=== PATIENT | male | born 1960 | race African-American/Black ===

== ENCOUNTER 2019-11-18 14:19 | Inpatient (IN) | payer OTHER ==
[2019-11-18 16:26] VITALS: BMI 19.8
--- NOTE | 2019-11-18 17:43 | HP ---
COWS - Scale Resting Pulse: 2= TN 101-120 Sweatin=Flushed/Facial Moisture Restless Observation: 0= Sits Still Pupil Size: 0= Normal to Room Light (Pupils pinpoint) Bone or Joint Aches: 0= None (Pain is unrelated to withdrawal) Runny Nose/ Eye Tearin= None GI Upset > 30mins: 0= None Tremor Observation: 2= Slight Tremor Visible Yawning Observation: 0= None Anxiety or Irritability: 2=Irritable/Anxious Goose Flesh Skin: 0=Smooth Skin COWS Score: 8 CIWA Score Nausea/Vomitin-No Nausea/No Vomiting Muscle Tremors: 3 Anxiety: 3 Agitation: 0-Normal Activity Paroxysmal Sweats: 3 (Increased facial moisture) Orientation: 0-Oriented Tacttile Disturbances: 0-None Auditory Disturbances: 0-None Visual Disturbances: 0-None Headache: 2-Mild CIWA-Ar Total Score: 11 - Admission Criteria OASAS Guidelines: Admission for Medically Managed Detox: Requires at least one of the followin. CIWA greater than 12 2. Seizures within the past 24 hours 3. Delirium tremens within the past 24 hours 4. Hallucinations within the past 24 hours 5. Acute intervention needed for co occurring medical disorder 6. Acute intervention needed for co occurring psychiatric disorder 7. Severe withdrawal that cannot be handled at a lower level of care (continued vomiting, continued diarrhea, abnormal vital signs) requiring intravenous medication and/or fluids 8. Patient presents the following: Acute intervention needed for co-occurring med or psych disorder (EL: 0.044; HIV+) Admission Criteria Met: Admission criteria met Admitting History and Physical - Smoking History Smoking history: Current every day smoker Have you smoked in the past 12 months: No Aproximately how many cigarettes per day: 20 - Alcohol/Substance Use Hx Alcohol Use: Yes Admission ROS BHS - HPI Chief Complaint: "I'm tired of using drugs. I need to gey sober for me and to see my family" Allergies/Adverse Reactions: Allergies Allergy/AdvReac Type Severity Reaction Status Date / Time No Known Allergies Allergy Verified 11/18/19 16:24 History of Present Illness: 59 yo presents w/ opiate withdrawal symptoms seeking heroin and alcohol detox. States biggest problem is alcohol and cocaine. EL: 0.004 UTox: + TISHA/MOR=MOP/FYL=FEN Denies seizures, blackouts, or overdoses. PATIENT W/ SOB W/ MINIMAL EXERTION AND WHEN SPEAKS. QUIET, NON-PRODUCTIVE COUGH. LUNGS CTA. PULSE OX = 93 % ON ROOM AIR. NOW UP TO 95 %. R= 22 DENIES CP. EK11/18/2019 = NSR/NORMAL EKG Known to staff member and states respiratory pattern is his normal baseline. Patient refuses to go to ED. Will order CXR. Alcohol use began at age 19. Currently drinks 1 qt beer/day. States used to drink more. Last drink was 2 hrs ago. Heroin use began at age 20. Currently 1 bag/day x 2 months. Sniff. Last used 3 hrs ago. States has cut down. Denies having a Narcan kit. Encouraged to speak w/ provider to obtain. Cocaine use began at age 21. Currently smokes $200/day. Last used 3 hrs ago. Nicotine use began at age 19. Smokes 1 PPD. PMHx: HIV+ on meds - not always compliant. (States last took on 11/17/2019); HTN; hx (L) hip (uses a walker or electric wheelchair). neuropathy (informed that Gabapentin would be decreased to 100 mg TID and verbalizes an understanding) Hx: Pneumothorax 2 yrs ago. States always puffs when talks and walks. MHHx: Denies depression. Denies thoughts of harming self or others SHx: Domiciled. Unemployed. Denies legal issues. Patient Name: London Moura Date: 1960 Address: [address] [place] [id number] Sex: Male Rx Written Rx Dispensed Drug Quantity Days Supply Prescriber Name 08/29/2019 08/30/2019 morphine sulfate ir 15 mg tab 60 30 Mariposa De Leon [facility] 08/29/2019 08/29/2019 morphine sulf er 15 mg tablet 30 30 Mariposa De Leon [facility] Patient Name: Jackson Moura Date: 1960 Address: [address] [place] [id number] Sex: Male Rx Written Rx Dispensed Drug Quantity Days Supply Prescriber Name 08/17/2019 08/17/2019 morphine sulf er 15 mg tablet 30 15 Boo Chavarria MD 08/17/2019 08/17/2019 buprenorphine-naloxone 8-2 mg sl film 30 15 Boo Chavarria MD Patient Name: London Moura Date: 1960 Address: [address] [place] [address] Sex: Male Rx Written Rx Dispensed Drug Quantity Days Supply Prescriber Name 07/31/2019 08/02/2019 buprenorphine-naloxone 8-2 mg sl film 15 8 Santiago Gardiner MD Exam Limitations: No Limitations - Ebola screening Have you traveled outside of the country in the last 21 days: No Have you had contact with anyone from an Ebola affected area: No Have you been sick,other than usual withdrawal symptoms: No Do you have a fever: No - Review of Systems Constitutional: Changes in sleep (Difficulty), Unintentional Wgt. Loss EENT: reports: Blurred Vision, Other (Eyes sensitive to light. Wears dark glasses) Respiratory: reports: Cough (Dry x months), SOB with Exertion Cardiac: reports: No Symptoms Reported GI: reports: No Symptoms Reported : reports: Frequency (5-6 x/nigt) Musculoskeletal: reports: Joint Pain ((L) and (R) hip. (L) > (R). Sharp pain. "5 ". Pain increases w/ walking/sitting) Integumentary: reports: No Symptoms Reported Neuro: reports: Headache (Frontal dull headache "5"), Tingling (Toes and feet), Unsteady Gait (Uses a wheelchair at home or walker) Endocrine: reports: No Symptoms Reported, Increased Thirst Hematology: reports: Anemia (HIV + on meds) Psychiatric: reports: Judgement Intact, Orientated x3, Agitated, Anxious Patient History - Patient Medical History Hx Anemia: No Hx Asthma: No Hx Chronic Obstructive Pulmonary Disease (COPD): No Hx Cancer: No Hx Cardiac Disorders: No Hx Congestive Heart Failure: No Hx Hypertension: Yes Hx Hypercholesterolemia: No Hx Pacemaker: No HX Cerebrovascular Accident: No Hx Seizures: No Hx Dementia: No Hx Diabetes: No Hx Gastrointestinal Disorders: Yes (Hx of acid reflux) Hx Liver Disease: No Hx Genitourinary Disorders: No Hx Sexually Transmitted Disorders: No Hx Renal Disease (ESRD): No Hx Thyroid Disease: No Hx Human Immunodeficiency Virus (HIV): Yes (1989) Hx Hepatitis C: Yes (1989) Hx Depression: Yes Hx Suicide Attempt: No Hx Bipolar Disorder: No Hx Schizophrenia: No - Patient Surgical History Past Surgical History: No Hx Neurologic Surgery: No Hx Cataract Extraction: No Hx Cardiac Surgery: No Hx Lung Surgery: No Hx Breast Surgery: No Hx Breast Biopsy: No Hx Abdominal Surgery: No Hx Appendectomy: No Hx Cholecystectomy: No Hx Genitourinary Surgery: No Hx Section: No Hx Orthopedic Surgery: Yes (RIGHT HIP SX 1994) Anesthesia Reaction: No - PPD History Previous Implant?: Yes Documented Results: Negative w/o proof Implanted On Prior [facility] Admission?: Yes PPD to be Administered?: Yes - Smoking Cessation Smoking history: Current every day smoker Have you smoked in the past 12 months: No Aproximately how many cigarettes per day: 20 Cigars Per Day: 0 Hx Chewing Tobacco Use: No Initiated information on smoking cessation: Yes 'Breaking Loose' booklet given: 11/18/19 - Substance & Tx. History Hx Alcohol Use: Yes Hx Substance Use: Yes Substance Use Type: Alcohol, Cocaine, Heroin Hx Substance Use Treatment: Yes (detox, rehab) - Substances abused Alcohol Substance route: Oral Amount used: 1/2-1 pint vodka Age of first use: 19 Date of last use: 11/18/19 Cocaine Substance route: Smoking Frequency: Daily Amount used: 1 gram Age of first use: 21 Date of last use: 11/18/19 Heroin Substance route: Inhalation Frequency: Daily Amount used: 1 bag Age of first use: 21 Date of last use: 11/18/19 Admission Physical Exam BHS - Vital Signs Vital Signs: Vital Signs - 24 hr 11/18/19 16:23 Temperature 98.3 F Pulse Rate 102 H Respiratory 20 Rate Blood Pressure 124/71 - Physical General Appearance: Yes: Mild Distress, Thin, Tremorous, Irritable, Sweating ( Increased facial moisture) HEENTM: Yes: Hearing grossly Normal, Normocephalic, SHANEL (Pupils pinpoint), Pharynx Normal, Other (Sclera w/ injection) Respiratory: Yes: Lungs Clear (Pulse Ox = 93 %), Normal Breath Sounds, Labored Respiration (When agitated or talks but denies SOB.), Other (Intermittent quiet , non-productive cough.) Neck: Yes: No masses,lesions,Nodules, Supple Breast: Yes: Breast Exam Deferred Cardiology: Yes: Regular Rhythm, S1, S2, Tachycardia Abdominal: Yes: Non Tender, Soft, Increased Bowel Sounds Genitourinary: Yes: Nocturia (> 3x/night urination) Back: Yes: Normal Inspection Musculoskeletal: Yes: Joint Stiffness (Hips and knees) Extremities: Yes: Normal Capillary Refill, Tremors (Mild tremors), Other ( Peripheral pulses +) Neurological: Yes: Fully Oriented, Alert, Motor Strength 5/5 Integumentary: Yes: Normal Color, Warm Lymphatic: Yes: Within Normal Limits - Diagnostic (1) Alcohol dependence with withdrawal, uncomplicated Current Visit: Yes Status: Acute (2) Opioid dependence, uncomplicated Current Visit: Yes Status: Acute (3) HIV positive Current Visit: Yes Status: Chronic (4) History of hip fracture Current Visit: Yes Status: Chronic (5) Impaired gait and mobility Current Visit: Yes Status: Chronic Comment: Uses walker here, electric wheel chair at home. (6) Nicotine use disorder Current Visit: Yes Status: Chronic (7) Cocaine dependence, uncomplicated Current Visit: Yes Status: Chronic (8) HTN (hypertension) Current Visit: Yes Status: Chronic Qualifiers: Hypertension type: essential hypertension Qualified Code(s): I10 - Essential (primary) hypertension (9) Underweight Current Visit: Yes Status: Chronic (10) Labored breathing Current Visit: Yes Status: Chronic Comment: When talks, walks, or gets agitated. States x years. Pulse Ox 94-96 % (11) GERD (gastroesophageal reflux disease) Current Visit: Yes Status: Chronic Qualifiers: Esophagitis presence: without esophagitis Qualified Code(s): K21.9 - Gastro -esophageal reflux disease without esophagitis Cleared for Admission [facility] - Detox or Rehab [facility] Level of Care: Medically Managed Detox Regimen/Protocol: Methadone/Librium Claeared for Rehab Admission: No Breathalyzer - Breathalyzer Breathalyzer: 0.044 Urine Drug Screen - Test Device Lot number: [id number] Expiration date: 09/09/21 - Control Is test valid?: Yes - Results Drug screen NEGATIVE: No Urine drug screen results: TISHA-Cocaine, FEN-Fentanyl, MOP-Opiates Inpatient Rehab Admission - Rehab Decision to Admit Inpatient rehab admission?: No
[2019-11-18] MEDS ORDERED: MAGNESIUM HYDROX 2400MG/30ML ORAL SUSPENSION 30 ML CUP PO PRN (19:51)
[2019-11-18] MEDS ORDERED: MAG HYDROX/AL HYDROX/SIMETH 30 ML UNIT-DOSE CUP PO PRN (19:51)
[2019-11-18] MEDS ORDERED: NICOTINE POLACRILEX 2 MG GUM BUC PRN (19:51)
[2019-11-18] MEDS ORDERED: MAGNESIUM CITRATE 300 ML BOTTLE PO PRN (19:51)
[2019-11-18] MEDS ORDERED: IBUPROFEN 400 MG TABLET (FP) PO PRN (19:51)
[2019-11-18] MEDS ORDERED: MELATONIN 5 MG TABLETS PO PRN (19:51)
[2019-11-18] MEDS ORDERED: MENTHOL/PHENOL 1 EACH UD MM PRN (19:51)
[2019-11-18] MEDS ORDERED: BISMUTH SUBSALICYLATE 524 MG/30 ML UD PO PRN (19:51)
[2019-11-18] MEDS ORDERED: chlordiazePOXIDE HCL 10 MG CAPSULE PO PRN (19:51)
[2019-11-18] MEDS ORDERED: ACETAMINOPHEN 325 MG TABLET (FP) PO PRN ×2 (19:51)
[2019-11-18] MEDS ORDERED: guaiFENesin 200 MG/10 ML 10 ML UNIT-DOSE CUPS PO SCH (20:15)
[2019-11-18] MEDS ORDERED: chlordiazePOXIDE HCL 10 MG CAPSULE PO ONE (20:27)
[2019-11-18] MEDS: PANTOPRAZOLE 20 MG TABLET PO SCH (21:45)
[2019-11-18] MEDS: GABAPENTIN 100 MG CAPSULE PO SCH (21:45)
[2019-11-18] MEDS: THIAMINE HCL 100 MG TABLET (FP) PO SCH (21:45)
[2019-11-18] MEDS: guaiFENesin 200 MG/10 ML 10 ML UNIT-DOSE CUPS PO SCH (23:27)
[2019-11-19] MEDS ORDERED: chlordiazePOXIDE HCL 25 MG CAPSULE PO SCH (05:00)
[2019-11-19] MEDS: chlordiazePOXIDE 5 MG CAPSULE PO SCH ×3 (05:57→22:24)
[2019-11-19] MEDS: GABAPENTIN 100 MG CAPSULE PO SCH ×3 (05:57→22:23)
[2019-11-19] MEDS: guaiFENesin 200 MG/10 ML 10 ML UNIT-DOSE CUPS PO SCH ×4 (07:02→23:30)
--- NOTE | 2019-11-19 09:28 | EKG ---
Test Reason : Blood Pressure : / mmHG Vent. Rate : 099 BPM Atrial Rate : 099 BPM P-R Int : 116 ms QRS Dur : 084 ms QT Int : 362 ms P-R-T Axes : 080 054 051 degrees QTc Int : 464 ms NORMAL SINUS RHYTHM NORMAL ECG NO PREVIOUS ECGS AVAILABLE Confirmed by Neville Harrington MD ([id number]) on 11/19/2019 9:27:52 AM Referred By: MIKE Confirmed By:Neville Harrington MD
[2019-11-19 09:45] LABS: HEMOGLOBIN 13.1 GM/dL (11.7-16.9); MCH 33.3 pg (25.7-33.7); MCHC 34.5 g/dl (32.0-35.9); MEAN CELL VOLUME 96.6 fl (80-96); MEAN PLT VOLUME 9.8 fl (7.5-11.1); PLATELET COUNT 167 K/MM3 (134-434); RBC 3.94 M/mm3 (4.00-5.60); WHITE BLOOD COUNT 4.7 K/mm3 (4.0-10.0)
[2019-11-19] MEDS ORDERED: METHADONE HCL 10 MG TABLET (FOR DETOX USE ONLY) PO ONE (10:00)
[2019-11-19 10:10] LABS: BILIRUBIN,TOTAL 0.5 mg/dL (0.2-1); BLOOD UREA NITROGEN 10.5 mg/dL (7-18); CALCIUM 8.7 mg/dL (8.5-10.1); CREATININE 1.4 mg/dL (0.55-1.3); POTASSIUM 4.3 mmol/L (3.5-5.1); TOT PROT 7.2 g/dl (6.4-8.2)
[2019-11-19] MEDS: NICOTINE 21 MG/24 HOURS TOPICAL PATCH TD SCH (10:30)
[2019-11-19] MEDS: PRENATAL VITAMINS W/ FOLIC ACID TABLET (FP) PO SCH (10:33)
[2019-11-19] MEDS: amLODIPine BESYLATE 5 MG TABLET (FP) PO SCH (10:33)
[2019-11-19] MEDS: PANTOPRAZOLE 20 MG TABLET PO SCH ×2 (10:33→22:23)
[2019-11-19] MEDS: DOLUTEGRAVIR SODIUM 50 MG PO SCH (10:35)
[2019-11-19] MEDS: PATIENT'S OWN MEDICATION (NON-FORMULARY) (Emtricitabine/Tenofov Alafenam [Descovy 200-25 M PO SCH (10:35)
--- NOTE | 2019-11-19 10:53 | CONSULT ---
[facility] Psychiatric Consult - Data Date of interview: 11/19/19 Identifying data: Mr Moura is a 59 years old single Black male, father of 37 years old son, unemployed receiving SSI, domiciled living in a studio apartment seeking detox treatment for alcohol, opioid and cocaine Substance Abuse History: Reports history of alcohol, heroin and cocaine use. Refer to addiction counselor's summary for further information Medical History: Significant for HIV, hepatitis C diagnosed in 1989, hypertension, dyslipidemia, neuropathy, GERD, history of fracture left hip( pending surgery) and thoracotomy for pneumothorax. Smokes cigarettes 1 ppd Psychiatric History: Patient is a poor and non informative historian. Reports vaguely and reluctantly previous psychiaric contact for anxiety. He reported being prescribed Klonopin in the past. No current OPD care. Denies previous psychiatric hospitalization or suicdal attempt. At present, he looks irritable complaining of feeling tired and wanting some rest Physical/Sexual Abuse/Trauma History: Subject not addressed due to limited cooperation Mental Status Exam - Mental Status Exam Alert and Oriented to: Time, Place, Person Cognitive Function: Fair Patient Appearance: Unkempt, Disheveled Mood: Irritable Affect: Appropriate Patient Behavior: Cooperative (superficially) Speech Pattern: Clear Voice Loudness: Normal Thought Process: Intact, Goal Oriented Thought Disorder: Not Present Hallucinations: Denies Suicidal Ideation: Denies Homicidal Ideation: Denies Insight/Judgement: Poor Sleep: Well Appetite: Good Muscle strength/Tone: Normal Gait/Station: Other (uses a walker or electric chair as ambulatory aid) Psychiatric Findings - Problem List ([place] 1, 2,3) (1) Substance induced mood disorder Current Visit: Yes Status: Acute (2) Alcohol dependence with withdrawal, uncomplicated Current Visit: Yes Status: Acute (3) Opioid dependence, uncomplicated Current Visit: Yes Status: Acute (4) Cocaine dependence, uncomplicated Current Visit: Yes Status: Chronic (5) Nicotine use disorder Current Visit: Yes Status: Chronic (6) GERD (gastroesophageal reflux disease) Current Visit: Yes Status: Chronic Qualifiers: Esophagitis presence: without esophagitis Qualified Code(s): K21.9 - Gastro -esophageal reflux disease without esophagitis (7) HIV positive Current Visit: Yes Status: Chronic (8) HTN (hypertension) Current Visit: Yes Status: Chronic Qualifiers: Hypertension type: essential hypertension Qualified Code(s): I10 - Essential (primary) hypertension (9) 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
--- NOTE | 2019-11-19 11:17 | PN ---
[facility] CIWA - CIWA Score Nausea/Vomitin-No Nausea/No Vomiting Muscle Tremors: 3 Anxiety: 2 Agitation: 2 Paroxysmal Sweats: 2 Orientation: 0-Oriented Tacttile Disturbances: 0-None Auditory Disturbances: 0-None Visual Disturbances: 0-None Headache: 0-None Present CIWA-Ar Total Score: 9 BHS COWS - Scale Resting Pulse: 1= TN 81-100 Sweatin= Chills/Flushing Restless Observation: 1= Difficult to Sit Still Pupil Size: 0= Normal to Room Light Bone or Joint Aches: 2= Severe Diffuse Aches Runny Nose/ Eye Tearin= Nasal Congestion GI Upset > 30mins: 0= None Tremor Observation of Outstretched Hands: 2= Slight Tremor Visible Yawning Observation: 2= >3x During Session Anxiety or Irritability: 2=Irritable/Anxious Goose Flesh Skin: 0=Smooth Skin COWS Score: 12 BHS Progress Note (SOAP) Subjective: sweats shakes interrupted sleep tired anxiety irritable body aches Objective: 11/19/19 11:14 Vital Signs Temperature 99 F 11/19/19 09:23 Pulse Rate 94 H 11/19/19 09:23 Respiratory Rate 18 11/19/19 09:23 Blood Pressure 158/70 11/19/19 09:23 O2 Sat by Pulse Oximetry (%) Laboratory Tests 11/19/19 11/19/19 11/19/19 07:30 07:30 07:30 WBC 4.7 RBC 3.94 L Hgb 13.1 Hct 38.0 MCV 96.6 H MCH 33.3 MCHC 34.5 RDW 14.0 D Plt Count 167 MPV 9.8 Sodium 141 Potassium 4.3 Chloride 108 H Carbon Dioxide 30 Anion Gap 4 L BUN 10.5 Creatinine 1.4 H Est GFR (CKD-EPI)AfAm 63.29 Est GFR (CKD-EPI)NonAf 54.60 Random Glucose 166 H Calcium 8.7 Total Bilirubin 0.5 AST 119 H ALT 132 H Alkaline Phosphatase 76 Total Protein 7.2 Albumin 3.0 L RPR Titer Nonreactive elevated liver enzymes d/c tylenol aaox3 ambulating no acute distress Assessment: 11/19/19 11:17 withdrawals Plan: continue detox d/c tylenol repeat ast/alt increase fluids
[2019-11-19] MEDS ORDERED: FLU VACCINE QUAD 60 MCG/0.5 ML (MDV 19-20) IM ONE (12:00)
[2019-11-19] MEDS: THIAMINE HCL 100 MG TABLET (FP) PO SCH (22:23)
[2019-11-20] MEDS ORDERED: chlordiazePOXIDE HCL 10 MG CAPSULE PO PRN
[2019-11-20] MEDS: guaiFENesin 200 MG/10 ML 10 ML UNIT-DOSE CUPS PO SCH ×3 (06:20→19:13)
[2019-11-20] MEDS: GABAPENTIN 100 MG CAPSULE PO SCH ×3 (06:20→21:52)
[2019-11-20] MEDS: chlordiazePOXIDE 5 MG CAPSULE PO SCH ×3 (06:20→21:52)
[2019-11-20] MEDS ORDERED: METHADONE HCL 5 MG TABLET (FOR DETOX USE ONLY) PO ONE (10:00)
--- NOTE | 2019-11-20 10:51 | PN ---
[facility] CIWA - CIWA Score Nausea/Vomitin-Mild Nausea/No Vomiting Muscle Tremors: 1-None Visible, but [place] Anxiety: 2 Agitation: 2 Paroxysmal Sweats: No Perspiration Orientation: 0-Oriented Tacttile Disturbances: 1-Very Mild Itch/Numbness Auditory Disturbances: 0-None Visual Disturbances: 0-None Headache: 1-Very Mild CIWA-Ar Total Score: 8 S COWS - Scale Resting Pulse: 1= [place] 81-100 Sweatin= No chills or Flushing Restless Observation: 1= Difficult to Sit Still Pupil Size: 1= Pupils >than Normal Bone or Joint Aches: 1= Mild Discomfort Runny Nose/ Eye Tearin= Nasal Congestion GI Upset > 30mins: 2= Nausea/Diarrhea Tremor Observation of Outstretched Hands: 1= Tremor [place], Not Seen Yawning Observation: 1= 1-2x During Session Anxiety or Irritability: 2=Irritable/Anxious Goose Flesh Skin: 0=Smooth Skin COWS Score: 11 [facility] Progress Note (SOAP) Subjective: alert,irritable,anxious,interrupted sleep,pain in the body and back Objective: 11/20/19 10:49 Vital Signs Temperature 98.2 F 11/20/19 08:51 Pulse Rate 90 11/20/19 08:51 Respiratory Rate 19 11/20/19 08:51 Blood Pressure 145/80 11/20/19 08:51 O2 Sat by Pulse Oximetry (%) 11/20/19 10:49 repeat alt,ast pending Assessment: 11/20/19 10:50 withdrawal symptom Plan: continue detox methadone and librium regimen,repeat alt,ast pending
[2019-11-20] MEDS: PRENATAL VITAMINS W/ FOLIC ACID TABLET (FP) PO SCH (11:17)
[2019-11-20] MEDS: PATIENT'S OWN MEDICATION (NON-FORMULARY) (Emtricitabine/Tenofov Alafenam [Descovy 200-25 M PO SCH (11:18)
[2019-11-20] MEDS: DOLUTEGRAVIR SODIUM 50 MG PO SCH (11:18)
[2019-11-20] MEDS: PANTOPRAZOLE 20 MG TABLET PO SCH ×2 (11:18→21:52)
[2019-11-20] MEDS: NICOTINE 21 MG/24 HOURS TOPICAL PATCH TD SCH (11:18)
[2019-11-20] MEDS: amLODIPine BESYLATE 5 MG TABLET (FP) PO SCH (11:18)
[2019-11-20 11:46] LABS: SGOT/AST 124 U/L (15-37); SGPT/ALT 145 U/L (13-61)
[2019-11-20] MEDS ORDERED: FLU VACCINE QUAD 60 MCG/0.5 ML (MDV 19-20) IM ONE (12:00)
--- NOTE | 2019-11-20 15:01 | PN ---
BHS Progress Note Note: patient with less withdrawal symptom,would like to be discharged in am
[2019-11-20] MEDS: THIAMINE HCL 100 MG TABLET (FP) PO SCH (21:52)
[2019-11-20 23:27] VITALS: TEMP 98.1
[2019-11-21] MEDS: guaiFENesin 200 MG/10 ML 10 ML UNIT-DOSE CUPS PO SCH ×2 (00:39→05:41)
[2019-11-21] MEDS ORDERED: chlordiazePOXIDE 5 MG CAPSULE PO SCH (05:00)
[2019-11-21] MEDS: GABAPENTIN 100 MG CAPSULE PO SCH (05:40)
[2019-11-21] MEDS ORDERED: METHADONE HCL 5 MG TABLET (FOR DETOX USE ONLY) PO ONE (06:00)
[2019-11-21 06:35] VITALS: BP 115/69; PULSE 89
--- NOTE | 2019-11-21 08:52 | DS ---
[facility] Detox Discharge Summary Admission Date: 11/18/19 Discharge Date: 11/21/19 - History Present History: Alcohol Dependence, Cannabis Dependence, Cocaine Dependence, Opioid Dependence - Physical Exam Results Vital Signs: Vital Signs Temperature 98.1 F 11/21/19 06:35 Pulse Rate 89 11/21/19 06:35 Respiratory Rate 18 11/21/19 06:35 Blood Pressure 115/69 11/21/19 06:35 O2 Sat by Pulse Oximetry (%) Pertinent Admission Physical Exam Findings: Vital Signs Temperature 98.1 F 11/21/19 06:35 Pulse Rate 89 11/21/19 06:35 Respiratory Rate 18 11/21/19 06:35 Blood Pressure 115/69 11/21/19 06:35 O2 Sat by Pulse Oximetry (%) Laboratory Tests 11/19/19 11/19/19 11/19/19 07:30 07:30 07:30 WBC 4.7 RBC 3.94 L Hgb 13.1 Hct 38.0 MCV 96.6 H MCH 33.3 MCHC 34.5 RDW 14.0 D Plt Count 167 MPV 9.8 Sodium 141 Potassium 4.3 Chloride 108 H Carbon Dioxide 30 Anion Gap 4 L BUN 10.5 Creatinine 1.4 H Est GFR (CKD-EPI)AfAm 63.29 Est GFR (CKD-EPI)NonAf 54.60 Random Glucose 166 H Calcium 8.7 Total Bilirubin 0.5 AST 119 H ALT 132 H Alkaline Phosphatase 76 Total Protein 7.2 Albumin 3.0 L RPR Titer Nonreactive 11/20/19 09:30 WBC RBC Hgb Hct MCV MCH MCHC RDW Plt Count MPV Sodium Potassium Chloride Carbon Dioxide Anion Gap BUN Creatinine Est GFR (CKD-EPI)AfAm Est GFR (CKD-EPI)NonAf Random Glucose Calcium Total Bilirubin AST 124 H ALT 145 H Alkaline Phosphatase Total Protein Albumin RPR Titer aaox3 ambulating +BS all four quadrants no acute distress - Treatment Hospital Course: Detox Protocol Followed, Detoxed Safely, Responded well, Discharged Condition Good, Rehab Referral Accepted - Medication Discharge Medications: Ambulatory Orders Amlodipine Besylate [Norvasc -] 5 mg PO DAILY 11/18/19 Dolutegravir Sodium [Tivicay] 50 mg PO DAILY 11/18/19 Duloxetine HCl [Cymbalta -] 20 mg PO DAILY 11/18/19 Emtricitabine/Tenofov Alafenam [Descovy 200-25 mg Tablet (Nf)] 1 each PO DAILY 11/18/19 Gabapentin [Neurontin] 600 mg PO TID 11/18/19 Pyridoxine HCl (Vitamin B6) [Vitamin B-6] 100 mg PO DAILY 11/18/19 Ranitidine HCl 150 mg PO BID 11/18/19 - Diagnosis (1) Alcohol dependence with withdrawal, uncomplicated Current Visit: Yes Status: Chronic (2) Opioid dependence, uncomplicated Current Visit: Yes Status: Chronic (3) Substance induced mood disorder Current Visit: Yes Status: Acute (4) Cocaine dependence, uncomplicated Current Visit: Yes Status: Chronic (5) GERD (gastroesophageal reflux disease) Current Visit: Yes Status: Chronic Qualifiers: Esophagitis presence: without esophagitis Qualified Code(s): K21.9 - Gastro -esophageal reflux disease without esophagitis (6) HIV positive Current Visit: Yes Status: Chronic (7) HTN (hypertension) Current Visit: Yes Status: Chronic Qualifiers: Hypertension type: essential hypertension Qualified Code(s): I10 - Essential (primary) hypertension (8) History of hip fracture Current Visit: Yes Status: Chronic (9) Impaired gait and mobility Current Visit: Yes Status: Chronic (10) 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
[2019-11-21] MEDS ORDERED: METHADONE HCL 10 MG TABLET (FOR DETOX USE ONLY) PO ONE (10:00)
[2019-11-22] MEDS ORDERED: chlordiazePOXIDE HCL 10 MG CAPSULE PO ONE (05:00)
== END 2019-11-21 08:22 | disposition home or self-care (01) | DRG 773 ==
LOC: YASAS 14:19 → Y6N 19:34
PROVIDERS: ADMIT Allergy & Immunology; ATTEND Allergy & Immunology
PROC: HZ2ZZZZ Detoxification Services for Substance Abuse Treatment (ICD-10-PCS; principal; 2019-11-18)
DX: F11.23 Opioid dependence with withdrawal (principal); F10.230 Alcohol dependence with withdrawal, uncomplicated; F14.20 Cocaine dependence, uncomplicated; F17.210 Nicotine dependence, cigarettes, uncomplicated; F19.24 Other psychoactive substance dependence with psychoactive substance-induced mood disorder; I10 Essential (primary) hypertension; R06.00 Dyspnea, unspecified; K21.9 Gastro-esophageal reflux disease without esophagitis; Z21 Asymptomatic human immunodeficiency virus [HIV] infection status; R26.2 Difficulty in walking, not elsewhere classified; G63 Polyneuropathy in diseases classified elsewhere; E78.5 Hyperlipidemia, unspecified; R00.0 Tachycardia, unspecified; Z99.89 Dependence on other enabling machines and devices; R63.6 Underweight; Z68.1 Body mass index [BMI] 19.9 or less, adult; Z56.0 Unemployment, unspecified
CPT/HCPCS: 36415; 71046-TC-FY; 80053; 84450; 84460; 85027; 86593; 93005; 93010; Q2036

== ENCOUNTER 2020-04-27 15:28 | Inpatient (IN) | payer OTHER ==
--- NOTE | 2020-04-27 18:13 | HP ---
COWS - Scale Resting Pulse: 0= [place] 80 or Below Sweatin= Chills/Flushing Restless Observation: 1= Difficult to Sit Still Pupil Size: 0= Normal to Room Light Bone or Joint Aches: 1= Mild Discomfort Runny Nose/ Eye Tearin= Nasal Congestion GI Upset > 30mins: 2= Nausea/Diarrhea Tremor Observation: 2= Slight Tremor Visible Yawning Observation: 0= None Anxiety or Irritability: 2=Irritable/Anxious Goose Flesh Skin: 0=Smooth Skin COWS Score: 10 CIWA Score Nausea/Vomitin-Mild Nausea/No Vomiting Muscle Tremors: 4-Moderate,w/Arms Extend Anxiety: 4-Mod. Anxious/Guarded Agitation: 0-Normal Activity Paroxysmal Sweats: No Perspiration Orientation: 0-Oriented Tacttile Disturbances: 3-Moderate Itch/Numb/Burn Auditory Disturbances: 0-None Visual Disturbances: 0-None Headache: 1-Very Mild CIWA-Ar Total Score: 13 - Admission Criteria OASAS Guidelines: Admission for Medically Managed Detox: Requires at least one of the followin. CIWA greater than 12 2. Seizures within the past 24 hours 3. Delirium tremens within the past 24 hours 4. Hallucinations within the past 24 hours 5. Acute intervention needed for co occurring medical disorder 6. Acute intervention needed for co occurring psychiatric disorder 7. Severe withdrawal that cannot be handled at a lower level of care (continued vomiting, continued diarrhea, abnormal vital signs) requiring intravenous medication and/or fluids 8. Admitting History and Physical - Admission History of Present Illness: Patient is a 59 y/o M who presents to [facility] for Alcohol/Heroine detox. Patient endorses he sniffs 3-4 bags of heroin per day. Last use was earlier this am ~1 am. Patient has been using heroin since he was 28 y/o. Patient also endorses he consumes 3 pints of vodka daily, last use being at midnight; patient has been drinking alcohol since he was 17 years old. Furthermore, patient stats he smokes crack cocaine, approximately 30-40 dollars worth; patient has been smoking crack since he was 25 years old. PMH- HIV (does not know viral load, not compliant with medication), HTN, Hepatitis C (previously treated but reinfected), peripheral neuropathy, eczema. Fractured Left hip SocialHx- As per HPI. Smokes 1 PPD cigarettes since he was 15 years old. SurgHx- Left knee surgery " For infection" FamHx- Denies NKDA History Source: Patient Limitations to Obtaining History: No Limitations - Past Medical History Cardiovascular: Yes: HTN Hepatobiliary: Yes: Hepatitis C (Previousley treated. Reinfected per patient) Infectious Disease: Yes: AIDS, HIV - Past Surgical History Additional Past Surgical History: Unspecified left knee surgery - Smoking History Smoking history: Current every day smoker Have you smoked in the past 12 months: Yes Aproximately how many cigarettes per day: 20 - Alcohol/Substance Use Hx Alcohol Use: Yes Admission [facility] Chief Complaint: " Try to clean myself up and try to get myself back to normal. I'm out of control." Allergies/Adverse Reactions: Allergies Allergy/AdvReac Type Severity Reaction Status Date / Time No Known Allergies Allergy Verified 03/11/20 16:15 Exam Limitations: No Limitations - Ebola screening Have you traveled outside of the country in the last 21 days: No Have you had contact with anyone from an Ebola affected area: No Have you been sick,other than usual withdrawal symptoms: No Do you have a fever: No - Review of Systems Constitutional: No Symptoms Reported EENT: reports: No Symptoms Reported Respiratory: reports: No Symptoms reported Cardiac: reports: No Symptoms Reported GI: reports: No Symptoms Reported : reports: No Symptoms Reported Musculoskeletal: reports: Back Pain Integumentary: reports: No Symptoms Reported Neuro: reports: Tingling (Tingling/burning both legs) Endocrine: reports: No Symptoms Reported Hematology: reports: No Symptoms Reported Psychiatric: reports: Orientated x3, Anxious Patient History - Patient Medical History Hx Anemia: No Hx Asthma: No Hx Chronic Obstructive Pulmonary Disease (COPD): No Hx Cancer: No Hx Cardiac Disorders: No Hx Congestive Heart Failure: No Hx Hypertension: Yes Hx Hypercholesterolemia: No Hx Pacemaker: No HX Cerebrovascular Accident: No Hx Seizures: No Hx Dementia: No Hx Diabetes: No Hx Gastrointestinal Disorders: No Hx Liver Disease: No Hx Genitourinary Disorders: No Hx Sexually Transmitted Disorders: No Hx Renal Disease (ESRD): No Hx Thyroid Disease: No Hx Human Immunodeficiency Virus (HIV): Yes (1989) Hx Hepatitis C: Yes (1989) Hx Depression: Yes Hx Suicide Attempt: No Hx Bipolar Disorder: No Hx Schizophrenia: No - Patient Surgical History Past Surgical History: No Hx Neurologic Surgery: No Hx Cataract Extraction: No Hx Cardiac Surgery: No Hx Lung Surgery: No Hx Breast Surgery: No Hx Breast Biopsy: No Hx Abdominal Surgery: No Hx Appendectomy: No Hx Cholecystectomy: No Hx Genitourinary Surgery: No Hx Section: No Hx Orthopedic Surgery: Yes (RIGHT HIP SX 1994) Anesthesia Reaction: No - PPD History Date: 11/20/19 Results: 0 mm - Smoking Cessation Smoking history: Current every day smoker Have you smoked in the past 12 months: Yes Aproximately how many cigarettes per day: 20 Cigars Per Day: 0 Hx Chewing Tobacco Use: No Initiated information on smoking cessation: Yes 'Breaking Loose' booklet given: 04/27/20 Admission Physical Exam [facility] - Physical General Appearance: Yes: Within Normal Limits, No Apparent Distress, Nourished, Appropriately Dressed HEENTM: Yes: EOMI, Hearing grossly Normal, Normocephalic, Normal Voice, Pharynx Normal. No: Scleral Ictenus R, Scleral Ictenus L Respiratory: Yes: Within Normal Limits, Chest Non-Tender, Lungs Clear, Normal Breath Sounds Cardiology: Yes: Within Normal Limits, Regular Rhythm, Regular Rate, S1, S2 Abdominal: Yes: Non Tender, Flat, Soft, Hernia (Abdominal wall hernia) Musculoskeletal: No: Gait Steady (uses a walker to ambulate) Extremities: Yes: Within Normal Limits Neurological: Yes: Fully Oriented, Alert, Normal Response, Numbness (neuropathy lower extremities.) Integumentary: Yes: Within Normal Limits, Normal Color, Dry, Warm - Diagnostic (1) Opiate addiction Current Visit: Yes Status: Acute (2) Alcohol dependence Current Visit: No Status: Acute (3) Cocaine dependence, uncomplicated Current Visit: No Status: Acute (4) HIV positive Current Visit: No Status: Chronic Cleared for Admission [facility] - Detox or Rehab [facility] Level of Care: Medically Managed Detox Regimen/Protocol: Methadone/Librium Breathalyzer - Breathalyzer Breathalyzer: 0.023 Urine Drug Screen - Test Device Lot number: [id number] Expiration date: 06/15/21 - Control Is test valid?: Yes - Results Drug screen NEGATIVE: No Urine drug screen results: TISHA-Cocaine, FEN-Fentanyl, MOP-Opiates, MTD- Methadone, BZO-Benzodiazepines Inpatient Rehab Admission - Rehab Decision to Admit Inpatient rehab admission?: No
[2020-04-27] MEDS ORDERED: ACETAMINOPHEN 325 MG TABLET (FP) PO PRN ×2 (19:10)
[2020-04-27] MEDS ORDERED: MAG HYDROX/AL HYDROX/SIMETH 30 ML UNIT-DOSE CUP PO PRN (19:10)
[2020-04-27] MEDS ORDERED: MAGNESIUM HYDROX 2400MG/30ML ORAL SUSPENSION 30 ML CUP PO PRN (19:10)
[2020-04-27] MEDS ORDERED: METHOCARBAMOL 500 MG TABLET PO PRN (19:10)
[2020-04-27] MEDS ORDERED: BISMUTH SUBSALICYLATE 524 MG/30 ML UD PO PRN (19:10)
[2020-04-27] MEDS ORDERED: NICOTINE POLACRILEX 2 MG GUM BUC PRN (19:10)
[2020-04-27] MEDS ORDERED: ONDANSETRON *ODT* 4 MG TABLET SL ONE (19:10)
[2020-04-27] MEDS ORDERED: MENTHOL/PHENOL 1 EACH UD MM PRN (19:10)
[2020-04-27] MEDS ORDERED: MAGNESIUM CITRATE 300 ML BOTTLE PO PRN (19:10)
[2020-04-27] MEDS ORDERED: IBUPROFEN 400 MG TABLET (FP) PO PRN (19:10)
[2020-04-27] MEDS ORDERED: chlordiazePOXIDE HCL 10 MG CAPSULE PO PRN (19:11)
[2020-04-27] MEDS ORDERED: cloNIDine HCL 0.1 MG TABLET PO PRN ×2 (19:13→19:17)
[2020-04-27] MEDS ORDERED: METHADONE HCL 10 MG TABLET (FOR DETOX USE ONLY) PO ONE ×2 (19:13→19:17)
--- NOTE | 2020-04-27 19:13 | PN ---
Teaching Attending Note Name of Resident: Eamon Wells ATTENDING PHYSICIAN STATEMENT I saw and evaluated the patient. I reviewed the resident's note and discussed the case with the resident. I agree with the resident's findings and plan as documented. SUBJECTIVE: 59 y.o. male requesting detox from ETOH and opaite use , reports 2 pints /day , denies blackouts , seizures , reports occasional tremors, latest use today . Heroin : 3-4 bags/ day via inhalation , denies OD , denies IV use , latest use today . PMH- HIV (does not know viral load, not compliant with medication), HTN, Hepatitis C (previously treated but reinfected), peripheral neuropathy, eczema. Fractured Left hip , left knee surgery OBJECTIVE: wnwd , ambulating w/ walker Vital Signs - 24 hr 04/27/20 18:39 Temperature 98.4 F Pulse Rate 82 Respiratory 16 Rate Blood Pressure 136/71 ASSESSMENT AND PLAN: AUD - Librium detox OUD - Methadone detox.
[2020-04-27] MEDS ORDERED: NICOTINE 7 MG/24 HOURS TOPICAL PATCH TD SCH (19:15)
[2020-04-27 19:53] VITALS: BMI 20.3
[2020-04-27] MEDS: PRENATAL VITAMINS W/ FOLIC ACID TABLET (FP) PO SCH (20:36)
[2020-04-27] MEDS: GABAPENTIN 300 MG CAPSULE PO SCH (21:56)
[2020-04-27] MEDS: chlordiazePOXIDE HCL 25 MG CAPSULE PO SCH (21:56)
[2020-04-27] MEDS: hydrOXYzine PAMOATE 25 MG CAPSULE (FP) PO PRN (21:57)
[2020-04-27] MEDS: MELATONIN 5 MG TABLETS PO SCH (21:57)
[2020-04-27] MEDS: THIAMINE HCL 100 MG TABLET (FP) PO SCH (21:59)
[2020-04-27] MEDS ORDERED: hydrOXYzine PAMOATE 25 MG CAPSULE (FP) PO SCH (22:00)
[2020-04-28] MEDS: chlordiazePOXIDE HCL 25 MG CAPSULE PO SCH ×3 (05:03→21:55)
[2020-04-28] MEDS: GABAPENTIN 300 MG CAPSULE PO SCH ×3 (05:03→21:56)
--- NOTE | 2020-04-28 09:20 | PN ---
S CIWA - CIWA Score Nausea/Vomitin-No Nausea/No Vomiting Muscle Tremors: 1-None Visible, but [place] Anxiety: 2 Agitation: 2 Paroxysmal Sweats: 1-Minimal Palms Moist Orientation: 0-Oriented Tacttile Disturbances: 0-None Auditory Disturbances: 0-None Visual Disturbances: 1-Very Mild Sensitivity Headache: 2-Mild CIWA-Ar Total Score: 9 BHS COWS - Scale Resting Pulse: 0= [place] 80 or Below Sweatin= Chills/Flushing Restless Observation: 0= Sits Still Pupil Size: 1= Pupils >than Normal Bone or Joint Aches: 2= Severe Diffuse Aches Runny Nose/ Eye Tearin= None GI Upset > 30mins: 2= Nausea/Diarrhea Tremor Observation of Outstretched Hands: 1= Tremor [place], Not Seen Yawning Observation: 0= None Anxiety or Irritability: 2=Irritable/Anxious Goose Flesh Skin: 0=Smooth Skin COWS Score: 9 S Progress Note (SOAP) Subjective: 59 years old male admitted on 04/27/20 for alcohol and opiate withdrawal sx management treating with librium and methaodne detox regiments ambulating with walker slow steady from bed to bathroom ate breakfast tolerated food well bmi 20.4 ensure 120 ml po tid with meals initiated Objective: 04/28/20 09:21 Vital Signs - 24 hr 04/27/20 04/27/20 04/27/20 18:39 19:38 20:30 Temperature 98.4 F 98.4 F 97.3 F L Pulse Rate 82 82 72 Respiratory 16 16 18 Rate Blood Pressure 136/71 136/71 151/83 O2 Sat by Pulse 100 Oximetry (%) 04/28/20 04/28/20 05:35 08:40 Temperature 97.4 F L 97.5 F L Pulse Rate 74 69 Respiratory 18 18 Rate Blood Pressure 129/78 107/63 O2 Sat by Pulse 96 Oximetry (%) 04/28/20 09:22 lab pending Assessment: 04/28/20 09:22 alcohol and opiate withdrawal hiv htn gerd Plan: librium and methadone regiments
[2020-04-28] MEDS ORDERED: METHADONE (DETOX) 20 MG, METHADONE (DETOX) 5 MG PO ONE (10:00)
[2020-04-28] MEDS ORDERED: METHADONE HCL 5 MG TABLET (FOR DETOX USE ONLY) PO ONE (10:00)
--- NOTE | 2020-04-28 10:01 | EKG ---
Test Reason : Blood Pressure : / mmHG Vent. Rate : 072 BPM Atrial Rate : 072 BPM P-R Int : 114 ms QRS Dur : 088 ms QT Int : 394 ms P-R-T Axes : 071 048 052 degrees QTc Int : 431 ms NORMAL SINUS RHYTHM MODERATE VOLTAGE CRITERIA FOR LVH, MAY BE NORMAL VARIANT BORDERLINE ECG WHEN COMPARED WITH ECG OF 18-NOV-2019 19:14, T WAVE AMPLITUDE HAS INCREASED IN ANTEROLATERAL LEADS Confirmed by MD TIAGO, INNA ([id number]) on 04/28/2020 10:01:44 AM Referred By: Confirmed By:INNA ORDOÑEZ MD
[2020-04-28] MEDS: PRENATAL VITAMINS W/ FOLIC ACID TABLET (FP) PO SCH (10:06)
[2020-04-28] MEDS: amLODIPine BESYLATE 5 MG TABLET (FP) PO SCH (10:06)
[2020-04-28] MEDS: DOLUTEGRAVIR SODIUM 50 MG TABLET (NON-FORMULARY) PO SCH (11:12)
[2020-04-28] MEDS: EMTRICITABINE/TENOFOV ALAFENAM (DESCOVY) TABLET PO SCH (11:14)
[2020-04-28 12:00] LABS: BILIRUBIN,TOTAL 0.4 mg/dL (0.2-1); BLOOD UREA NITROGEN 14.7 mg/dL (7-18); CREATININE 1.3 mg/dL (0.55-1.3); POTASSIUM 4.1 mmol/L (3.5-5.1); TOT PROT 8.5 g/dl (6.4-8.2)
[2020-04-28 12:06] LABS: HEMATOCRIT 43.8 % (35.4-49); HEMOGLOBIN 14.5 GM/dL (11.7-16.9); MCH 32.1 pg (25.7-33.7); MCHC 33.1 g/dl (32.0-35.9); MEAN CELL VOLUME 96.8 fl (80-96); MEAN PLT VOLUME 10.2 fl (7.5-11.1); PLATELET COUNT 189 K/MM3 (134-434); RBC 4.53 M/mm3 (4.00-5.60); RDW 14.5 % (11.9-15.9); WHITE BLOOD COUNT 4.7 K/mm3 (4.0-10.0)
[2020-04-28] MEDS ORDERED: TRIAMCINOLONE ACET 0.1% CREAM 15 GM TUBE TP SCH (14:00)
[2020-04-28] MEDS: TRIAMCINOLONE ACET 0.1% OINT 15 GM TUBE TP SCH ×3 (16:02→21:56)
[2020-04-28] MEDS: MELATONIN 5 MG TABLETS PO SCH (21:56)
[2020-04-28] MEDS: THIAMINE HCL 100 MG TABLET (FP) PO SCH (21:56)
[2020-04-29] MEDS: chlordiazePOXIDE 5 MG CAPSULE PO SCH ×3 (05:17→21:29)
[2020-04-29] MEDS: GABAPENTIN 300 MG CAPSULE PO SCH ×3 (05:18→21:29)
--- NOTE | 2020-04-29 09:18 | PN ---
S CIWA - CIWA Score Nausea/Vomitin-Mild Nausea/No Vomiting Muscle Tremors: 1-None Visible, but [place] Anxiety: 2 Agitation: 1-Slight > Activity Paroxysmal Sweats: No Perspiration Orientation: 0-Oriented Tacttile Disturbances: 0-None Auditory Disturbances: 0-None Visual Disturbances: 1-Very Mild Sensitivity Headache: 0-None Present CIWA-Ar Total Score: 6 BHS COWS - Scale Resting Pulse: 0= [place] 80 or Below Sweatin= No chills or Flushing Restless Observation: 0= Sits Still Pupil Size: 1= Pupils >than Normal Bone or Joint Aches: 1= Mild Discomfort Runny Nose/ Eye Tearin= None GI Upset > 30mins: 1= Stomach Cramp Tremor Observation of Outstretched Hands: 2= Slight Tremor Visible Yawning Observation: 0= None Anxiety or Irritability: 1=Feels Anxious/Irritable Goose Flesh Skin: 0=Smooth Skin COWS Score: 6 S Progress Note (SOAP) Subjective: 59 years old male admitted on 04/29/20 for alcohol and opiate withdrawal sx management treating with librium detox regiment brought in from [facility] by wheel chair due to tremor ambulating with walker slow steady from bed to bathroom report less tremor than yesterday Objective: 04/29/20 09:17 Vital Signs - 24 hr 04/28/20 04/28/20 04/28/20 12:37 16:31 20:30 Temperature 97.8 F 97.1 F L 97.3 F L Pulse Rate 96 H 65 68 Respiratory 18 18 18 Rate Blood Pressure 126/70 146/76 130/74 O2 Sat by Pulse 95 96 Oximetry (%) 04/29/20 04/29/20 06:08 08:42 Temperature 97.6 F 97.5 F L Pulse Rate 69 68 Respiratory 16 18 Rate Blood Pressure 126/71 123/73 O2 Sat by Pulse 95 Oximetry (%) Laboratory Tests 04/28/20 04/28/20 04/28/20 08:15 08:15 08:15 WBC 4.7 RBC 4.53 Hgb 14.5 Hct 43.8 MCV 96.8 H MCH 32.1 MCHC 33.1 RDW 14.5 Plt Count 189 MPV 10.2 Sodium 140 Potassium 4.1 Chloride 104 Carbon Dioxide 32 Anion Gap 4 L BUN 14.7 Creatinine 1.3 Est GFR (CKD-EPI)AfAm 69.22 Est GFR (CKD-EPI)NonAf 59.72 Random Glucose 58 L Calcium 9.0 Total Bilirubin 0.4 AST 29 ALT 23 Alkaline Phosphatase 75 Total Protein 8.5 H Albumin 3.0 L Syphilis Serology Reactive A* lab noted 04/29/20 09:18 rpr ratio pending Assessment: 04/29/20 09:18 alcohol and opiate withdrawal walker for ambulation Plan: librium and methadone regiments
[2020-04-29] MEDS ORDERED: METHADONE HCL 10 MG TABLET (FOR DETOX USE ONLY) PO ONE ×2 (10:00)
[2020-04-29] MEDS: amLODIPine BESYLATE 5 MG TABLET (FP) PO SCH (10:14)
[2020-04-29] MEDS: DOLUTEGRAVIR SODIUM 50 MG TABLET (NON-FORMULARY) PO SCH (10:14)
[2020-04-29] MEDS: SULFAMETHOXAZOLE/TRIMETHOPRIM 800MG/160MG D.S. TABLET PO SCH (10:14)
[2020-04-29] MEDS: PRENATAL VITAMINS W/ FOLIC ACID TABLET (FP) PO SCH (10:14)
[2020-04-29] MEDS: EMTRICITABINE/TENOFOV ALAFENAM (DESCOVY) TABLET PO SCH (10:15)
[2020-04-29] MEDS: TRIAMCINOLONE ACET 0.1% OINT 15 GM TUBE TP SCH ×4 (10:16→21:27)
[2020-04-29] MEDS: MELATONIN 5 MG TABLETS PO SCH (21:29)
[2020-04-29] MEDS: THIAMINE HCL 100 MG TABLET (FP) PO SCH (21:30)
[2020-04-30] MEDS ORDERED: chlordiazePOXIDE HCL 10 MG CAPSULE PO PRN
[2020-04-30] MEDS: GABAPENTIN 300 MG CAPSULE PO SCH ×3 (05:58→21:03)
[2020-04-30] MEDS: chlordiazePOXIDE HCL 10 MG CAPSULE PO SCH ×3 (05:58→21:03)
[2020-04-30] MEDS ORDERED: METHADONE HCL 5 MG TABLET (FOR DETOX USE ONLY) PO ONE (06:00)
[2020-04-30] MEDS ORDERED: METHADONE (DETOX) 10 MG, METHADONE (DETOX) 5 MG PO ONE (10:00)
[2020-04-30] MEDS: amLODIPine BESYLATE 5 MG TABLET (FP) PO SCH (10:33)
[2020-04-30] MEDS: PRENATAL VITAMINS W/ FOLIC ACID TABLET (FP) PO SCH (10:35)
[2020-04-30] MEDS: DOLUTEGRAVIR SODIUM 50 MG TABLET (NON-FORMULARY) PO SCH (10:35)
[2020-04-30] MEDS: EMTRICITABINE/TENOFOV ALAFENAM (DESCOVY) TABLET PO SCH (10:35)
[2020-04-30] MEDS: TRIAMCINOLONE ACET 0.1% OINT 15 GM TUBE TP SCH ×4 (10:35→21:06)
--- NOTE | 2020-04-30 13:55 | PN ---
[facility] CIWA - CIWA Score Nausea/Vomitin-No Nausea/No Vomiting Muscle Tremors: 1-None Visible, but [place] Anxiety: 1-Mildly Anxious Agitation: 0-Normal Activity Paroxysmal Sweats: No Perspiration Orientation: 0-Oriented Tacttile Disturbances: 0-None Auditory Disturbances: 0-None Visual Disturbances: 1-Very Mild Sensitivity Headache: 0-None Present CIWA-Ar Total Score: 3 S COWS - Scale Resting Pulse: 1= [place] 81-100 Sweatin= No chills or Flushing Restless Observation: 0= Sits Still Pupil Size: 0= Normal to Room Light Bone or Joint Aches: 1= Mild Discomfort Runny Nose/ Eye Tearin= None GI Upset > 30mins: 0= None Tremor Observation of Outstretched Hands: 1= Tremor [place], Not Seen Yawning Observation: 0= None Anxiety or Irritability: 0= None Goose Flesh Skin: 0=Smooth Skin COWS Score: 3 S Progress Note (SOAP) Subjective: 59 years old male admitted on 04/29/20 for alcohol and opiate withdrawal sx management treating with librium and methadone detox regiments feeling better today ambulating with walker from room to day room from room to counselor slow steady requesting to stay in detox longer and continue methadone daily discussing medication assisted treatment program and picking up narcan from pharmacy upon discharge "more problem from methadone program" mr randolph refuses to reveal "problem" in detail Objective: 04/30/20 14:00 Vital Signs - 24 hr 04/29/20 04/29/20 04/30/20 16:48 20:47 06:16 Temperature 97.3 F L 97.7 F 98.0 F Pulse Rate 82 82 94 H Respiratory 18 16 16 Rate Blood Pressure 129/72 156/84 152/90 O2 Sat by Pulse 100 96 95 Oximetry (%) 04/30/20 04/30/20 08:46 12:58 Temperature 98.0 F 97.3 F L Pulse Rate 86 93 H Respiratory 18 18 Rate Blood Pressure 111/63 130/75 O2 Sat by Pulse 100 Oximetry (%) Laboratory Tests 04/27/20 04/28/20 04/28/20 19:45 08:15 08:15 WBC 4.7 RBC 4.53 Hgb 14.5 Hct 43.8 MCV 96.8 H MCH 32.1 MCHC 33.1 RDW 14.5 Plt Count 189 MPV 10.2 Sodium Potassium Chloride Carbon Dioxide Anion Gap BUN Creatinine Est GFR (CKD-EPI)AfAm Est GFR (CKD-EPI)NonAf Random Glucose Calcium Total Bilirubin AST ALT Alkaline Phosphatase Total Protein Albumin Syphilis Serology Reactive A* RPR Titer COVID-19 (MATT) Not detected 04/28/20 04/28/20 08:15 08:15 WBC RBC Hgb Hct MCV MCH MCHC RDW Plt Count MPV Sodium 140 Potassium 4.1 Chloride 104 Carbon Dioxide 32 Anion Gap 4 L BUN 14.7 Creatinine 1.3 Est GFR (CKD-EPI)AfAm 69.22 Est GFR (CKD-EPI)NonAf 59.72 Random Glucose 58 L Calcium 9.0 Total Bilirubin 0.4 AST 29 ALT 23 Alkaline Phosphatase 75 Total Protein 8.5 H Albumin 3.0 L Syphilis Serology RPR Titer Reactive 1:1 H COVID-19 (MATT) lab noted Assessment: 04/30/20 14:01 alcohol and opiate withdrawal Plan: librium and methadone regiments
[2020-04-30] MEDS: hydrOXYzine PAMOATE 25 MG CAPSULE (FP) PO PRN (21:03)
[2020-04-30] MEDS: MELATONIN 5 MG TABLETS PO SCH (21:03)
[2020-04-30] MEDS: THIAMINE HCL 100 MG TABLET (FP) PO SCH (21:04)
[2020-05-01] MEDS ORDERED: chlordiazePOXIDE HCL 10 MG CAPSULE PO ONE (05:00)
[2020-05-01] MEDS: GABAPENTIN 300 MG CAPSULE PO SCH (06:06)
[2020-05-01 09:10] VITALS: BP 145/87; PULSE 96; TEMP 97.7
[2020-05-01] MEDS: SULFAMETHOXAZOLE/TRIMETHOPRIM 800MG/160MG D.S. TABLET PO SCH (09:45)
[2020-05-01] MEDS: amLODIPine BESYLATE 5 MG TABLET (FP) PO SCH (09:45)
[2020-05-01] MEDS: DOLUTEGRAVIR SODIUM 50 MG TABLET (NON-FORMULARY) PO SCH (09:45)
[2020-05-01] MEDS: EMTRICITABINE/TENOFOV ALAFENAM (DESCOVY) TABLET PO SCH (09:45)
[2020-05-01] MEDS: TRIAMCINOLONE ACET 0.1% OINT 15 GM TUBE TP SCH (09:46)
[2020-05-01] MEDS: hydrOXYzine PAMOATE 25 MG CAPSULE (FP) PO PRN (09:46)
[2020-05-01] MEDS: PRENATAL VITAMINS W/ FOLIC ACID TABLET (FP) PO SCH (09:48)
[2020-05-01] MEDS ORDERED: METHADONE HCL 10 MG TABLET (FOR DETOX USE ONLY) PO ONE (10:00)
--- NOTE | 2020-05-01 11:37 | DS ---
[facility] Detox Discharge Summary Admission Date: 04/27/20 Discharge Date: 05/01/20 - History Present History: Alcohol Dependence, Opioid Dependence Pertinent Past History: Patient is a 59 y/o M who presented to [facility] for Alcohol/Heroin detox. Substance use hx: Patient endorses he sniffs 3-4 bags of heroin per day. Last use was earlier this am ~1 am. Patient has been using heroin since he was 28 y/o. Patient also endorses he consumes 3 pints of vodka daily, last use being at midnight; patient has been drinking alcohol since he was 17 years old. Furthermore, patient stats he smokes crack cocaine, approximately 30-40 dollars worth; patient has been smoking crack since he was 25 years old. PMH- HIV (does not know viral load, not compliant with medication), HTN, Hepatitis C (previously treated but reinfected), peripheral neuropathy, eczema. Fractured Left hip SocialHx- As per HPI. Smokes 1 PPD cigarettes since he was 15 years old. SurgHx- Left knee surgery " For infection" FamHx- Denies NKDA PE Gnl: WD, WN, in no distress MS: pt yelling at nurses station, wants more methadone, something for anxiety Motor: in wheelchair, able to move self well in wc Coord: nl Imp Alcohol use disorder Opioid use disorder Nicotine dependence HTN HIV Hep C, Hx fractured left hip Cocaine use - Physical Exam Results Vital Signs: Vital Signs Temperature 97.7 F 05/01/20 09:08 Pulse Rate 96 H 05/01/20 09:08 Respiratory Rate 18 05/01/20 09:08 Blood Pressure 145/87 05/01/20 09:08 O2 Sat by Pulse Oximetry (%) 97 05/01/20 09:08 - Treatment Hospital Course: Detox Protocol Followed, Detoxed Safely, Responded well, Discharged Condition Good, Rehab Referral Accepted Patient has Accepted a Rehab Referral to: [facility] - Medication Discharge Medications: Ambulatory Orders Amlodipine Besylate [Norvasc -] 5 mg PO DAILY 11/18/19 Dolutegravir Sodium [Tivicay] 50 mg PO DAILY 11/18/19 Emtricitabine/Tenofov Alafenam [Descovy 200-25 mg Tablet (Nf)] 1 each PO DAILY 11/18/19 Gabapentin [Neurontin] 600 mg PO TID 11/18/19 Naloxone HCl [Narcan] 4 mg NS ASDIR PRN #1 spray 04/30/20 - AMA Did Patient Leave Against Medical Advice: No
[2020-05-02] MEDS ORDERED: METHADONE HCL 5 MG TABLET (FOR DETOX USE ONLY) PO ONE (06:00)
== END 2020-05-01 10:53 | disposition other institution (70) | DRG 773 ==
LOC: YASAS 15:28 → Y3N 19:22
PROVIDERS: ADMIT Allergy & Immunology; ATTEND Allergy & Immunology
PROC: HZ2ZZZZ Detoxification Services for Substance Abuse Treatment (ICD-10-PCS; principal; 2020-04-27)
DX: F10.230 Alcohol dependence with withdrawal, uncomplicated (principal); F11.23 Opioid dependence with withdrawal; F14.20 Cocaine dependence, uncomplicated; F17.210 Nicotine dependence, cigarettes, uncomplicated; Z21 Asymptomatic human immunodeficiency virus [HIV] infection status; G62.9 Polyneuropathy, unspecified; I10 Essential (primary) hypertension; K21.9 Gastro-esophageal reflux disease without esophagitis; B18.2 Chronic viral hepatitis C; L30.9 Dermatitis, unspecified; Z91.410 Personal history of adult physical and sexual abuse; Z99.89 Dependence on other enabling machines and devices; Z87.81 Personal history of (healed) traumatic fracture
CPT/HCPCS: 36415; 80053; 85027; 86593; 86780; 93005; 93010; U0003

== ENCOUNTER 2020-05-01 11:13 | Inpatient (IN) | payer OTHER ==
[2020-05-01] MEDS ORDERED: P-EPHED 60MG/TRIPROLIDI 2.5MG TABLET PO PRN (14:16)
[2020-05-01] MEDS ORDERED: MAG HYDROX/AL HYDROX/SIMETH 30 ML UNIT-DOSE CUP PO PRN (14:16)
[2020-05-01] MEDS ORDERED: LOPERAMIDE HCL 2 MG CAPSULE PO PRN (14:16)
[2020-05-01] MEDS ORDERED: ACETAMINOPHEN 325 MG TABLET (FP) PO PRN (14:16)
[2020-05-01] MEDS ORDERED: IBUPROFEN 400 MG TABLET (FP) PO PRN (14:16)
[2020-05-01] MEDS ORDERED: MENTHOL/PHENOL 1 EACH UD MM PRN (14:16)
[2020-05-01] MEDS ORDERED: MAGNESIUM HYDROX 2400MG/30ML ORAL SUSPENSION 30 ML CUP PO PRN (14:16)
[2020-05-01] MEDS ORDERED: MAGNESIUM CITRATE 300 ML BOTTLE PO PRN (14:16)
[2020-05-01] MEDS ORDERED: guaiFENesin 200 MG/10 ML 10 ML UNIT-DOSE CUPS PO PRN (14:16)
[2020-05-01] MEDS ORDERED: NICOTINE POLACRILEX 2 MG GUM BUC PRN (14:16)
--- NOTE | 2020-05-01 14:24 | HP ---
[facility] Rehab Assess/Revision - Admission History Admitted to Rehab from: [facility] [place] - Vital signs Vital Signs: Vital Signs Period Temp Pulse Resp BP Sys/Finney Pulse Ox Last 24 Hr 98.5 F 97 18 122/74 96 - Findings Detox History & Physical reviewed: Yes Concur with findings: Yes Inpatient Rehab Admission - Rehab Decision to Admit Inpatient rehab admission?: Yes - Initial Determination Are CD services needed?: Yes Free of communicable disease: Yes Not in need of hospitalization: Yes - Rehab Admission Criteria Previous failed treatment: Yes Poor recovery environment: Yes Comorbidities: Yes Lacks judgement: Yes Patient is meeting Inpatient Rehab admission criteria:: Yes
[2020-05-01] MEDS: hydrOXYzine PAMOATE 25 MG CAPSULE (FP) PO SCH ×2 (19:21→21:08)
[2020-05-01] MEDS: GABAPENTIN 300 MG CAPSULE PO SCH (21:08)
[2020-05-01] MEDS ORDERED: THIAMINE HCL 100 MG TABLET (FP) PO SCH (22:00)
[2020-05-01] MEDS ORDERED: MELATONIN 5 MG TABLETS PO SCH (22:00)
[2020-05-02] MEDS: hydrOXYzine PAMOATE 25 MG CAPSULE (FP) PO SCH ×2 (05:49→10:08)
[2020-05-02] MEDS: GABAPENTIN 300 MG CAPSULE PO SCH ×2 (05:49→14:54)
[2020-05-02 07:20] VITALS: TEMP 98
[2020-05-02] MEDS ORDERED: EMTRICITABINE/TENOFOV ALAFENAM (DESCOVY) TABLET PO SCH (08:00)
[2020-05-02 09:25] VITALS: BP 132/69; PULSE 82
[2020-05-02] MEDS ORDERED: DOLUTEGRAVIR SODIUM 50 MG TABLET (NON-FORMULARY) PO SCH (10:00)
[2020-05-02] MEDS ORDERED: NICOTINE 14 MG/24 HOURS TOPICAL PATCH TD SCH (10:00)
[2020-05-02] MEDS ORDERED: NICOTINE 7 MG/24 HOURS TOPICAL PATCH TD SCH (10:00)
[2020-05-02] MEDS ORDERED: PRENATAL VITAMINS W/ FOLIC ACID TABLET (FP) PO SCH (10:00)
[2020-05-02] MEDS ORDERED: amLODIPine BESYLATE 5 MG TABLET (FP) PO SCH (10:00)
[2020-05-02] MEDS ORDERED: PT OWN MED DRAWER 7, Y5N ONE (10:10)
[2020-05-02] MEDS ORDERED: hydrOXYzine PAMOATE 50 MG CAPSULE (FP) PO PRN (12:59)
[2020-05-02] MEDS ORDERED: METHOCARBAMOL 500 MG TABLET PO PRN (16:01)
--- NOTE | 2020-05-02 16:05 | PN ---
S Progress Note Note: withdrawal symptom Vital Signs Temperature 98 F 05/02/20 07:20 Pulse Rate 82 05/02/20 09:00 Respiratory Rate 18 05/02/20 09:00 Blood Pressure 132/69 05/02/20 09:00 O2 Sat by Pulse Oximetry (%) 94 L 05/02/20 15:59 treatment robaxin 500 mgs po q6 hrs prn clonidine 0.1 mg po bid close monitoring
[2020-05-02] MEDS ORDERED: cloNIDine HCL 0.1 MG TABLET PO ONE (17:37)
--- NOTE | 2020-05-02 20:18 | DS ---
[facility] Detox Discharge Summary Admission Date: 05/01/20 - Physical Exam Results Vital Signs: Vital Signs Temperature 98 F 05/02/20 07:20 Pulse Rate 82 05/02/20 09:00 Respiratory Rate 18 05/02/20 09:00 Blood Pressure 132/69 05/02/20 09:00 O2 Sat by Pulse Oximetry (%) 94 L 05/02/20 15:59 - Medication Discharge Medications: Ambulatory Orders Amlodipine Besylate [Norvasc -] 5 mg PO DAILY 11/18/19 Dolutegravir Sodium [Tivicay] 50 mg PO DAILY 11/18/19 Emtricitabine/Tenofov Alafenam [Descovy 200-25 mg Tablet (Nf)] 1 each PO DAILY 11/18/19 Gabapentin [Neurontin] 600 mg PO TID 11/18/19 Naloxone HCl [Narcan] 4 mg NS ASDIR PRN #1 spray 04/30/20
--- NOTE | 2020-05-02 20:18 | PN ---
[facility] Progress Note Note: patient did not want to complete treatment,high risk of relapsing explained,patient understood, seen by counselor,signed release ama,stated he will go back to methadone maintenance by himself, did not want to wait for arrangement from this facility,signed release ama
[2020-05-02] MEDS ORDERED: cloNIDine HCL 0.1 MG TABLET PO SCH (22:00)
--- NOTE | 2020-05-04 16:25 | DS ---
[facility] Rehab Discharge Summary - [facility] Rehab Discharge Summary Admission Date: 05/01/20 Discharge Date: 05/02/20 - History Present History: Alcohol dependence, Cocaine dependence, Opioid dependence Additional Comments: patient signed release ama as mentioned left the unit in good and stable conditioned has all medication at home follow up with his medical provider for medical problem Pertinent Past History: ambulation with walker hiv hypertension history of neuropathy - Discharge Physical Exam Vital Signs: Vital Signs Temperature 98 F 05/02/20 07:20 Pulse Rate 82 05/02/20 09:00 Respiratory Rate 18 05/02/20 09:00 Blood Pressure 132/69 05/02/20 09:00 O2 Sat by Pulse Oximetry (%) 94 L 05/02/20 15:59 Pertinent Admission Physical Exam Findings: withdrawal symptom Vital Signs Temperature 98 F 05/02/20 07:20 Pulse Rate 82 05/02/20 09:00 Respiratory Rate 18 05/02/20 09:00 Blood Pressure 132/69 05/02/20 09:00 O2 Sat by Pulse Oximetry (%) 94 L 05/02/20 15:59 - Treatment Discharge Condition: Responded well - Medication Discharge Medications: Ambulatory Orders Amlodipine Besylate [Norvasc -] 5 mg PO DAILY 11/18/19 Dolutegravir Sodium [Tivicay] 50 mg PO DAILY 11/18/19 Emtricitabine/Tenofov Alafenam [Descovy 200-25 mg Tablet (Nf)] 1 each PO DAILY 11/18/19 Gabapentin [Neurontin] 600 mg PO TID 11/18/19 Naloxone HCl [Narcan] 4 mg NS ASDIR PRN #1 spray 04/30/20 - Medication-Assisted Treatment (MAT) Medication-Assisted Treatment (MAT): No - Discharge Instructions Diet, activity, other medical instructions: Diet: Activity: Other medical instructions: - Diagnosis (1) Alcohol dependence Status: Acute (2) Cocaine dependence, uncomplicated Status: Acute (3) Opioid withdrawal Status: Acute (4) Syphilis contact, treated Status: Acute (5) Cocaine dependence Status: Chronic (6) GERD (gastroesophageal reflux disease) Status: Chronic Qualifiers: Esophagitis presence: without esophagitis Qualified Code(s): K21.9 - Gastro-esophageal reflux disease without esophagitis (7) HIV positive Status: Chronic (8) History of hip fracture Status: Chronic (9) 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
== END 2020-05-02 19:10 | disposition left against medical advice (07) | DRG 770 ==
LOC: YASAS 11:13 → Y3W 11:14
PROVIDERS: ADMIT Allergy & Immunology; ATTEND Allergy & Immunology
PROC: HZ42ZZZ Group Counseling for Substance Abuse Treatment, Cognitive-Behavioral (ICD-10-PCS; principal; 2020-05-01)
DX: F10.20 Alcohol dependence, uncomplicated (principal); F11.20 Opioid dependence, uncomplicated; F14.20 Cocaine dependence, uncomplicated; F17.210 Nicotine dependence, cigarettes, uncomplicated; Z21 Asymptomatic human immunodeficiency virus [HIV] infection status; G62.9 Polyneuropathy, unspecified; I10 Essential (primary) hypertension; B18.2 Chronic viral hepatitis C; L30.9 Dermatitis, unspecified
CPT/HCPCS: J0735

== ENCOUNTER 2022-01-31 15:41 | Inpatient (IN) | payer OTHER ==
[2022-01-31 17:42] VITALS: BMI 20.3
[2022-01-31] MEDS ORDERED: BISMUTH SUBSALICYLATE 524 MG/30 ML PO PRN (20:56)
[2022-01-31] MEDS ORDERED: MAGNESIUM CITRATE 300 ML BOTTLE PO PRN (20:56)
[2022-01-31] MEDS ORDERED: MAG HYDROX/AL HYDROX/SIMETH 30 ML UNIT-DOSE CUP PO PRN (20:56)
[2022-01-31] MEDS ORDERED: NICOTINE POLACRILEX 2 MG GUM BUC PRN (20:56)
[2022-01-31] MEDS ORDERED: BENZOCAINE/MENTHOL (CHLORASEPTIC ) LOZENGE MM PRN (20:56)
[2022-01-31] MEDS ORDERED: ONDANSETRON *ODT* 4 MG TABLET SL PRN (20:56)
[2022-01-31] MEDS ORDERED: IBUPROFEN 400 MG TABLET (FP) PO PRN (20:56)
[2022-01-31] MEDS ORDERED: DICYCLOMINE HCL 10 MG CAPSULE PO PRN (20:56)
[2022-01-31] MEDS ORDERED: MAGNESIUM HYDROX 2400MG/30ML ORAL SUSPENSION 30 ML CUP PO PRN (20:56)
[2022-01-31] MEDS ORDERED: LOPERAMIDE HCL 2 MG CAPSULE PO PRN (20:56)
[2022-01-31] MEDS ORDERED: ACETAMINOPHEN 325 MG TABLET (FP) PO PRN ×2 (20:56)
[2022-02-01] MEDS: chlordiazePOXIDE HCL 25 MG CAPSULE PO PRN (01:56)
[2022-02-01] MEDS: MELATONIN 5 MG TABLETS PO SCH ×2 (04:45→22:34)
[2022-02-01] MEDS: THIAMINE HCL 100 MG TABLET (FP) PO SCH ×2 (04:45→22:33)
[2022-02-01] MEDS: chlordiazePOXIDE HCL 25 MG CAPSULE PO SCH ×4 (05:49→22:34)
[2022-02-01] MEDS: PRENATAL VITAMINS W/ FOLIC ACID TABLET (FP) PO SCH (10:33)
[2022-02-01] MEDS: NICOTINE 21 MG/24 HOURS TOPICAL PATCH TD SCH (10:33)
[2022-02-01 11:59] LABS: CALCIUM 8.7 mg/dL (8.5-10.1)
[2022-02-01 12:01] LABS: ALBUMIN 2.8 g/dl (3.4-5.0)
[2022-02-01 12:03] LABS: CREATININE 1.5 mg/dL (0.55-1.3)
[2022-02-01 12:04] LABS: HEMATOCRIT 36.2 % (35.4-49); HEMOGLOBIN 12.5 GM/dL (11.7-16.9); MCH 32.9 pg (25.7-33.7); MCHC 34.6 g/dl (32.0-35.9); MEAN CELL VOLUME 95.2 fl (80-96); MEAN PLT VOLUME 9.8 fl (7.5-11.1); PLATELET COUNT 187 10^3/uL (134-434); RDW 14.5 % (11.9-15.9); WHITE BLOOD COUNT 3.9 K/mm3 (4.0-10.0)
[2022-02-01 12:05] LABS: BILIRUBIN,TOTAL 0.4 mg/dL (0.2-1); TOT PROT 6.9 g/dl (6.4-8.2)
[2022-02-01] MEDS: METHOCARBAMOL 500 MG TABLET PO PRN (22:36)
[2022-02-02] MEDS: chlordiazePOXIDE HCL 25 MG CAPSULE PO SCH ×4 (05:56→22:36)
[2022-02-02] MEDS: PRENATAL VITAMINS W/ FOLIC ACID TABLET (FP) PO SCH (11:15)
[2022-02-02] MEDS: METHOCARBAMOL 500 MG TABLET PO PRN (11:15)
[2022-02-02] MEDS: NICOTINE 21 MG/24 HOURS TOPICAL PATCH TD SCH (11:15)
[2022-02-02 14:08] LABS: SARS-CoV-2 NAA Not Detected (Not Detected)
[2022-02-02] MEDS: chlordiazePOXIDE HCL 25 MG CAPSULE PO PRN (14:25)
[2022-02-02] MEDS: amLODIPine BESYLATE 5 MG TABLET (FP) PO SCH (15:37)
[2022-02-02] MEDS: EMTRICITABINE/TENOFOV ALAFENAM (DESCOVY) TABLET PO SCH (17:43)
[2022-02-02] MEDS: DOLUTEGRAVIR SODIUM 50 MG TABLET (NON-FORMULARY) PO SCH (17:43)
[2022-02-02] MEDS: THIAMINE HCL 100 MG TABLET (FP) PO SCH (22:34)
[2022-02-02] MEDS: GABAPENTIN 400 MG CAPSULE PO SCH (22:34)
[2022-02-02] MEDS: MELATONIN 5 MG TABLETS PO SCH (22:34)
[2022-02-03] MEDS ORDERED: chlordiazePOXIDE HCL 10 MG CAPSULE PO PRN
[2022-02-03] MEDS: GABAPENTIN 400 MG CAPSULE PO SCH ×3 (06:02→22:45)
[2022-02-03] MEDS: chlordiazePOXIDE HCL 10 MG CAPSULE PO SCH ×4 (06:02→22:46)
[2022-02-03] MEDS: DOLUTEGRAVIR SODIUM 50 MG TABLET (NON-FORMULARY) PO SCH (07:17)
[2022-02-03] MEDS: EMTRICITABINE/TENOFOV ALAFENAM (DESCOVY) TABLET PO SCH (07:17)
[2022-02-03] MEDS: PRENATAL VITAMINS W/ FOLIC ACID TABLET (FP) PO SCH (10:59)
[2022-02-03] MEDS: amLODIPine BESYLATE 5 MG TABLET (FP) PO SCH (10:59)
[2022-02-03] MEDS: NICOTINE 21 MG/24 HOURS TOPICAL PATCH TD SCH (11:01)
[2022-02-03] MEDS: LIDOCAINE 5% TOPICAL PATCH TP SCH (14:15)
[2022-02-03] MEDS: METHOCARBAMOL 500 MG TABLET PO PRN (17:59)
[2022-02-03] MEDS ORDERED: LIDOCAINE PATCH REMOVAL MC SCH (22:00)
[2022-02-03] MEDS: MELATONIN 5 MG TABLETS PO SCH (22:45)
[2022-02-03] MEDS: THIAMINE HCL 100 MG TABLET (FP) PO SCH (22:45)
[2022-02-04] MEDS ORDERED: chlordiazePOXIDE HCL 10 MG CAPSULE PO SCH (05:00)
[2022-02-04] MEDS: GABAPENTIN 400 MG CAPSULE PO SCH (05:48)
[2022-02-04] MEDS: EMTRICITABINE/TENOFOV ALAFENAM (DESCOVY) TABLET PO SCH (08:27)
[2022-02-04] MEDS: DOLUTEGRAVIR SODIUM 50 MG TABLET (NON-FORMULARY) PO SCH (08:28)
[2022-02-04 08:54] VITALS: BP 136/65; PULSE 82; TEMP 97.7
[2022-02-04] MEDS: amLODIPine BESYLATE 5 MG TABLET (FP) PO SCH (10:35)
[2022-02-04] MEDS: LIDOCAINE 5% TOPICAL PATCH TP SCH (10:35)
[2022-02-04] MEDS: PRENATAL VITAMINS W/ FOLIC ACID TABLET (FP) PO SCH (10:35)
[2022-02-04] MEDS: NICOTINE 21 MG/24 HOURS TOPICAL PATCH TD SCH (10:35)
[2022-02-05] MEDS ORDERED: chlordiazePOXIDE HCL 10 MG CAPSULE PO ONE (05:00)
== END 2022-02-04 09:30 | disposition home or self-care (01) | DRG 775 ==
LOC: YASAS 15:41 → Y3N 22:47
PROVIDERS: ADMIT Allergy & Immunology; ATTEND Allergy & Immunology
PROC: HZ2ZZZZ Detoxification Services for Substance Abuse Treatment (ICD-10-PCS; principal; 2022-01-31)
DX: F10.230 Alcohol dependence with withdrawal, uncomplicated (principal); F15.20 Other stimulant dependence, uncomplicated; F17.210 Nicotine dependence, cigarettes, uncomplicated; F19.24 Other psychoactive substance dependence with psychoactive substance-induced mood disorder; F41.9 Anxiety disorder, unspecified; F32.A Depression, unspecified; B20 Human immunodeficiency virus [HIV] disease; G62.9 Polyneuropathy, unspecified; I10 Essential (primary) hypertension; K21.9 Gastro-esophageal reflux disease without esophagitis; L30.9 Dermatitis, unspecified; B18.2 Chronic viral hepatitis C; Z96.642 Presence of left artificial hip joint; R26.89 Other abnormalities of gait and mobility; Z99.89 Dependence on other enabling machines and devices; Z86.19 Personal history of other infectious and parasitic diseases
CPT/HCPCS: 36415; 80053; 85027; 86593; 86780; C9803-CS; U0003; U0005

== ENCOUNTER 2023-08-02 21:07 | Inpatient (IN) | payer OTHER ==
[2023-08-02 22:44] VITALS: BMI 17.9
[2023-08-02] MEDS ORDERED: NICOTINE POLACRILEX 2 MG GUM BUC PRN (23:12)
[2023-08-02] MEDS ORDERED: NALOXONE HCL (KLOXXADO) 8 MG SPRAY NS PRN (23:12)
[2023-08-02] MEDS ORDERED: BISMUTH SUBSALICYLATE 524 MG/30 ML PO PRN (23:12)
[2023-08-02] MEDS ORDERED: IBUPROFEN 600 MG TABLET (FP) PO PRN (23:12)
[2023-08-02] MEDS ORDERED: BENZONATATE 200 MG CAPSULE PO PRN (23:12)
[2023-08-02] MEDS ORDERED: MAG HYDROX/AL HYDROX/SIMETH 30 ML UNIT-DOSE CUP PO PRN (23:12)
[2023-08-02] MEDS ORDERED: IBUPROFEN 400 MG TABLET (FP) PO PRN (23:12)
[2023-08-02] MEDS ORDERED: NALOXONE HCL 0.4 MG/ML VIAL IM PRN (23:12)
[2023-08-02] MEDS ORDERED: POLYETHYLENE GLYCOL (HEALTHYLAX) 3350 17 GM PACKET PO PRN (23:12)
[2023-08-02] MEDS ORDERED: P-EPHED 60MG/TRIPROLIDI 2.5MG TABLET PO PRN (23:12)
[2023-08-02] MEDS ORDERED: METHOCARBAMOL 500 MG TABLET PO PRN (23:12)
[2023-08-02] MEDS ORDERED: MAGNESIUM HYDROX 2400MG/30ML ORAL SUSPENSION 30 ML CUP PO PRN (23:12)
[2023-08-02] MEDS ORDERED: LOPERAMIDE HCL 2 MG CAPSULE PO PRN (23:12)
[2023-08-02] MEDS ORDERED: BENZOCAINE/MENTHOL (CHLORASEPTIC ) LOZENGE MM PRN (23:12)
[2023-08-02] MEDS ORDERED: ONDANSETRON *ODT* 4 MG TABLET SL PRN (23:12)
[2023-08-02] MEDS ORDERED: DICYCLOMINE HCL 10 MG CAPSULE PO PRN (23:12)
[2023-08-02] MEDS ORDERED: ACETAMINOPHEN 325 MG TABLET (FP) PO PRN (23:12)
[2023-08-03] MEDS: GABAPENTIN 300 MG CAPSULE PO SCH ×4 (00:14→22:21)
[2023-08-03] MEDS ORDERED: chlordiazePOXIDE HCL 25 MG CAPSULE PO PRN (09:42)
[2023-08-03] MEDS: DOLUTEGRAVIR SODIUM 50 MG TABLET (NON-FORMULARY) PO SCH (10:43)
[2023-08-03] MEDS: EMTRICITABINE/TENOFOV ALAFENAM (DESCOVY) TABLET PO SCH (10:43)
[2023-08-03] MEDS: PRENATAL VITAMINS W/ FOLIC ACID TABLET (FP) PO SCH (10:43)
[2023-08-03] MEDS: chlordiazePOXIDE HCL 25 MG CAPSULE PO SCH ×3 (11:42→22:21)
[2023-08-03 12:01] LABS: CHLORIDE 107 mmol/L (98-107); POTASSIUM 4.3 mmol/L (3.5-5.1); SODIUM 138 mmol/L (136-145)
[2023-08-03 12:07] LABS: HEMATOCRIT 36.4 % (35.4-49); HEMOGLOBIN 12.7 GM/dL (11.7-16.9); MCH 31.9 pg (25.7-33.7); MCHC 34.8 g/dl (32.0-35.9); MEAN CELL VOLUME 91.7 fl (80-96); MEAN PLT VOLUME 9.8 fl (7.5-11.1); PLATELET COUNT 187 10^3/uL (134-434); RBC 3.97 M/mm3 (4.00-5.60); RDW 13.2 % (11.9-15.9); WHITE BLOOD COUNT 3.6 K/mm3 (4.0-10.0)
[2023-08-03 12:09] LABS: ALBUMIN 2.7 g/dl (3.4-5.0); ANION GAP 6 mmol/L (4-13); BLOOD UREA NITROGEN 15.5 mg/dL (7-18); CALCIUM 8.1 mg/dL (8.5-10.1); CO2 25 mmol/L (21-32); GLUCOSE,RANDOM 88 mg/dL (74-106)
[2023-08-03 12:10] LABS: SGPT/ALT 13 U/L (13-61)
[2023-08-03 12:11] LABS: CREATININE 1.8 mg/dL (0.55-1.3); SGOT/AST 25 U/L (15-37); TOT PROT 7.4 g/dl (6.4-8.2)
[2023-08-03 12:12] LABS: ALK PHOS 69 U/L (45-117)
[2023-08-03 12:13] LABS: BILIRUBIN,TOTAL 0.3 mg/dL (0.2-1)
[2023-08-03] MEDS: MELATONIN 5 MG TABLETS PO SCH (22:20)
[2023-08-03] MEDS: THIAMINE HCL 100 MG TABLET (FP) PO SCH (22:21)
[2023-08-03] MEDS: guaiFENesin 600 MG TABLET.ER (FP) PO PRN (22:21)
[2023-08-04] MEDS: chlordiazePOXIDE HCL 25 MG CAPSULE PO SCH ×4 (05:45→22:02)
[2023-08-04] MEDS: GABAPENTIN 300 MG CAPSULE PO SCH ×3 (05:45→21:52)
[2023-08-04] MEDS: guaiFENesin 600 MG TABLET.ER (FP) PO PRN (07:43)
[2023-08-04] MEDS: EMTRICITABINE/TENOFOV ALAFENAM (DESCOVY) TABLET PO SCH (10:31)
[2023-08-04] MEDS: PRENATAL VITAMINS W/ FOLIC ACID TABLET (FP) PO SCH (10:31)
[2023-08-04] MEDS: DOLUTEGRAVIR SODIUM 50 MG TABLET (NON-FORMULARY) PO SCH (10:31)
[2023-08-04] MEDS: guaiFENesin 200 MG/10 ML 10 ML UNIT-DOSE CUPS PO PRN ×2 (17:32→21:50)
[2023-08-04] MEDS: MELATONIN 5 MG TABLETS PO SCH (21:52)
[2023-08-04] MEDS: THIAMINE HCL 100 MG TABLET (FP) PO SCH (21:52)
[2023-08-05] MEDS: chlordiazePOXIDE HCL 25 MG CAPSULE PO SCH ×4 (05:34→22:36)
[2023-08-05] MEDS: GABAPENTIN 300 MG CAPSULE PO SCH ×3 (05:47→22:36)
[2023-08-05] MEDS: SULFAMETHOXAZOLE/TRIMETHOPRIM 800MG/160MG D.S. TABLET PO SCH (10:18)
[2023-08-05] MEDS: DOLUTEGRAVIR SODIUM 50 MG TABLET (NON-FORMULARY) PO SCH (10:18)
[2023-08-05] MEDS: EMTRICITABINE/TENOFOV ALAFENAM (DESCOVY) TABLET PO SCH (10:18)
[2023-08-05] MEDS: PRENATAL VITAMINS W/ FOLIC ACID TABLET (FP) PO SCH (10:19)
[2023-08-05] MEDS: hydrOXYzine PAMOATE 25 MG CAPSULE (FP) PO PRN (22:36)
[2023-08-05] MEDS: THIAMINE HCL 100 MG TABLET (FP) PO SCH (22:36)
[2023-08-05] MEDS: MELATONIN 5 MG TABLETS PO SCH (22:36)
[2023-08-05] MEDS: TRIAMCINOLONE ACET 0.1% OINT 15 GM TUBE TP SCH (22:39)
[2023-08-06] MEDS ORDERED: chlordiazePOXIDE HCL 10 MG CAPSULE PO PRN
[2023-08-06] MEDS: chlordiazePOXIDE HCL 10 MG CAPSULE PO SCH ×2 (05:35→10:25)
[2023-08-06] MEDS: GABAPENTIN 300 MG CAPSULE PO SCH (05:35)
[2023-08-06 06:34] VITALS: RESP 16
[2023-08-06] MEDS: hydrOXYzine PAMOATE 25 MG CAPSULE (FP) PO PRN (08:43)
[2023-08-06] MEDS: EMTRICITABINE/TENOFOV ALAFENAM (DESCOVY) TABLET PO SCH (09:17)
[2023-08-06] MEDS: SULFAMETHOXAZOLE/TRIMETHOPRIM 800MG/160MG D.S. TABLET PO SCH (09:17)
[2023-08-06] MEDS: DOLUTEGRAVIR SODIUM 50 MG TABLET (NON-FORMULARY) PO SCH (09:17)
[2023-08-06] MEDS: PRENATAL VITAMINS W/ FOLIC ACID TABLET (FP) PO SCH (09:18)
[2023-08-06 09:19] VITALS: BP 132/74; PULSE 93; TEMP 97.8
[2023-08-06] MEDS: TRIAMCINOLONE ACET 0.1% OINT 15 GM TUBE TP SCH (09:22)
[2023-08-07] MEDS ORDERED: chlordiazePOXIDE HCL 10 MG CAPSULE PO SCH (05:00)
[2023-08-08] MEDS ORDERED: chlordiazePOXIDE HCL 10 MG CAPSULE PO ONE (05:00)
== END 2023-08-06 09:35 | disposition left against medical advice (07) | DRG 770 ==
LOC: YASAS 21:07 → Y3N 23:42
PROVIDERS: ADMIT Allergy & Immunology; ATTEND Surgery
PROC: HZ2ZZZZ Detoxification Services for Substance Abuse Treatment (ICD-10-PCS; principal; 2023-08-02)
DX: F10.230 Alcohol dependence with withdrawal, uncomplicated (principal); F14.20 Cocaine dependence, uncomplicated; F17.210 Nicotine dependence, cigarettes, uncomplicated; B20 Human immunodeficiency virus [HIV] disease; G62.9 Polyneuropathy, unspecified; I10 Essential (primary) hypertension; B18.2 Chronic viral hepatitis C; R76.8 Other specified abnormal immunological findings in serum; Z86.19 Personal history of other infectious and parasitic diseases
CPT/HCPCS: 36415; 80053; 80307; 85027; 86593; 86780; 87635; 87811; Q0162